=== PATIENT | male | born 1990 | race Caucasian/White ===

== ENCOUNTER 2018-11-29 20:30 | Emergency (ER) | payer SELFPAY ==
[~2018-11-29] VITALS: Ht 170.2 cm; Wt 68.0 kg
[2018-11-29 20:39] VITALS: BP 125/93
--- NOTE | 2018-11-29 20:42 | NUR ---
AMBULATED TO LOBBY WITH VSS.
--- NOTE | 2018-11-29 21:38 | NUR ---
Amb to bed 2 per self.
--- NOTE | 2018-11-29 21:40 | NUR ---
PATIENT COMES TO ER WITH C/O NOT FEELING WELL. PT STATED HE FELT SICK DUE TO TAKING METH A FEW HOURS PRIOR TO ER. PT ALSO STATED HE HAD SMOKED [place] PRIOR TO ER. PT STATED THAT HE HAS NOT DONE DRUGS FOR A LONG TIME SO HE FEELS HE TOOK TOO MUCH. PATIENT STATES PAIN OF 5/10 AT THIS TIME; VSS; PT IS A/O. PATIENT POSITIONED FOR COMFORT; HOB ELEVATED; BEDRAILS UP X2; BED DOWN. ER MD MADE AWARE OF PT STATUS.
[2018-11-29 22:54] LABS: BASOPHILS % (AUTO) 0.5 % (0.0-2.0); EOSINOPHILS % (AUTO) 0.4 % (0.0-4.0); HEMATOCRIT 47.5 % (36-52); HEMOGLOBIN 16.2 g/dL (12.0-18.0); LYMPHOCYTES # (AUTO) 1.9 K/uL (2.0-11.5); LYMPHOCYTES % (AUTO) 18.4 % (20.5-51.1); MEAN CORPUSCULAR HEMOGLOBIN 31 pg (27-31); MEAN CORPUSCULAR HGB CONC 34 g/dL (33-37); MEAN CORPUSCULAR VOLUME 90.2 fL (80-94); MONOCYTES # (AUTO) 0.9 K/uL (0.8-1.0); MONOCYTES % (AUTO) 9.1 % (1.7-9.3); NEUTROPHILS # (AUTO) 7.4 K/uL (1.8-7.7); NEUTROPHILS % (AUTO) 71.6 % (42.2-75.2); PLATELET COUNT (AUTO) 324 K/uL (140-450); RED BLOOD CELL COUNT(AUTO) 5.27 MIL/uL (4.20-6.10); RED CELL DISTRIBUTION WIDTH 13.2 % (11.6-13.7); WHITE BLOOD COUNT (AUTO) 10.4 K/uL (4.8-10.8)
[2018-11-29 23:21] LABS: ALBUMIN 4.6 g/dL (3.4-5.0); ANION GAP 15.8 (8-16); CARBON DIOXIDE 25.6 mmol/L (21-32); POTASSIUM 3.4 mmol/L (3.5-5.1); TOTAL BILIRUBIN 0.8 mg/dL (0.0-1.0)
[2018-11-29 23:28] VITALS: BP 125/93
--- NOTE | 2018-11-29 23:30 | NUR ---
Patient discharged with v/s stable. Written and verbal after care instructions given and explained. Patient verbalized understanding. Ambulatory with steady gait. All questions addressed prior to discharge. Advised to follow up with PMD.
== END 2018-11-29 23:30 | disposition home or self-care (01) ==
LOC: MED 20:30
DX: F15.10 Other stimulant abuse, uncomplicated (principal); F12.10 Cannabis abuse, uncomplicated; M54.5 Low back pain; E87.6 Hypokalemia; F17.200 Nicotine dependence, unspecified, uncomplicated; Z71.6 Tobacco abuse counseling
CPT/HCPCS: 36415; 80053; 85025; 93005; 99283